=== PATIENT | male | born 1950 | race African-American/Black ===

== ENCOUNTER 2021-05-22 19:47 | Emergency (ER) | payer OTHER ==
[2021-05-22 20:14] VITALS: BP 148/81; PULSE 92; TEMP 98.2; BMI 24.9
[2021-05-22] MEDS ORDERED: DIPHTH,PERTUSS(ACELL),TET 0.5 ML DISP.SYRIN IM ONE ×2 (21:41→21:55)
== END 2021-05-22 23:41 | disposition home or self-care (01) ==
LOC: JER 19:47
PROC: 3E0234Z Introduction of Serum, Toxoid and Vaccine into Muscle, Percutaneous Approach (ICD-10-PCS; principal; 2021-05-22)
PROC: 0HQKXZZ Repair Right Lower Leg Skin, External Approach (ICD-10-PCS; principal; 2021-05-22)
DX: S81.811A Laceration without foreign body, right lower leg, initial encounter (principal); W26.8XXA Contact with other sharp object(s), not elsewhere classified, initial encounter
CPT/HCPCS: 90715; 99282-25